=== PATIENT | male | born 1970 | race Caucasian/White ===

== ENCOUNTER → 2022-09-29 15:16 | Outpatient (BNVA) | payer SELFPAY | PROVIDERS: PCP Nurse Practitioner Family; Visit Provider Nurse Practitioner Family | DX: I10 Essential (primary) hypertension (principal); R79.89 Other specified abnormal findings of blood chemistry; Z76.89 Persons encountering health services in other specified circumstances; R03.0 Elevated blood-pressure reading, without diagnosis of hypertension | CPT/HCPCS: 80053; 80061; 82140; 84443; 85025 ==

== ENCOUNTER 2023-09-04 14:17 | Emergency (ER) | payer SELFPAY ==
[2023-09-04 14:23] VITALS: BP 143/81; PULSE 71; RESP 16; TEMP 36.7; O2SAT 100; BMI 22.8
--- NOTE | 2023-09-04 14:35 | XRR_ITS ---
PROCEDURE INFORMATION: Exam: XR Left Hand Exam date and time: 09/04/2023 2:46 PM Age: 52 years old Clinical indication: Injury or trauma; Left; Index finger and middle finger; Patient HX: Laceration to distal lt 1st and 2nd digit; Man vs saw TECHNIQUE: Imaging protocol: Radiologic exam of the left hand. Views: 3 or more views. COMPARISON: No relevant prior studies available. FINDINGS: Bones/joints: No acute fracture. Old callused 5th metacarpal fracture. Soft tissues: No radiopaque foreign body. XR/XR hand LT min 3V* [id number] IMPRESSION: No acute fracture or radiopaque foreign body.
--- NOTE | 2023-09-04 14:35 | ED_ITS ---
HPI - Wound/Laceration General: Chief Complaint: Wound/Laceration Stated Complaint: fingers caught in table saw Time Seen by Provider: 09/04/23 14:31 Source: patient Mode of arrival: ambulatory Limitations: no limitations History of Present Illness: 52-year-old male who lacerated his finge rs on a table saw. He has lacerations to the distal tips of his left pointer and middle finger on the dorsum aspect. He states he is up-to-date on his tetanus he rates his pain a 4 out of 10 he has no bleeding at this time. No amputation. Associated symptoms: Denies chills, fever(s), nausea or vomiting Review of Systems Const: Denies: fever(s), chills, body aches or change in appetite ENMT: Denies: throat pain or dental pain Card: Denies: chest pain Resp: Denies: dyspnea GI: Denies: abdominal pain, nausea, vomiting or diarrhea Musc: Denies: neck pain or back pain Skin/Breast: Denies: rash Neuro: Denies: headache(s) PFSH ED PFSH: Medical History Hypertension Social History Smoking and tobacco/nicotine status: current every day tobacco/nicotine user Alcohol intake: never Physical Exam Const: COMMON NORMALS: no acute distress, patient oriented x3 and healthy appearing HENMT: COMMON NORMALS: normocephalic and atraumatic HEAD & SCALP: normocephalic and atraumatic Neck/C-Spine: COMMON NORMALS: full ROM and supple Chest: COMMONS NORMALS: normal inspection of the chest and normal palpation of entire chest wall Resp: COMMON NORMALS: normal respiratory effort Cardio: COMMON NORMALS: regular rate RATE: regular rate Extremity: COMMON NORMALS: full ROM NARRATIVE EXTREMITY EXAM: 1 cm laceration to the dorsum distal tip s of the left middle and pointer finger does not involve any tendons he has full range of motion does involve nailbed Neuro: COMMON NORMALS: patient oriented x3, moves all extremities and no focal motor deficits Psych: COMMON NORMALS: mental status grossly normal, Normal thought process present and cooperative THOUGHT PROCESS: Normal thought process present Skin: COMMON NORMALS: no rashes or lesions noted and no wounds GENERAL SKIN EXAM: no rashes or lesions noted Procedures Laceration Laceration 1: Site: hand Side (If applicable): left (index finger) Size (cm): 1 Description: linear Depth: simple, single layer and involves tendon Pre-repair: wound explored, irrigated extensively and deep structures intact Skin layer closed with: other (dermabond) Laceration 2: Site: hand Side (If applicable): left (middle finger) Size (cm): 1 Description: linear Depth: simple, single layer and involves tendon Pre-repair: wound explored, irrigated extensively and deep structures intact Skin layer closed with: other (dermabond) Course Vital Signs: Vital signs: Vital Signs Temperature 98.1 F 09/04/23 14:23 Pulse Rate 71 09/04/23 14:23 Respiratory Rate 16 09/04/23 14:23 Blood Pressure 143/81 09/04/23 14:23 Pulse Oximetry 100 09/04/23 14:23 Oxygen Delivery Me thod Room Air 09/04/23 14:23 MDM - Wound/Laceration Medical Decision Making Patient presents here with superficial lacerations to the distal fingertips of the index and middle finger of the left hand no fractures noted repaired the lacerations with Dermabond he stable for discharge Medical Records I reviewed the patient's medical records. XR interpretation done by ED provider, pending radiology final review ED provider radiology interpretation(s): X-ray hand no fracture noted Discharge Plan Discharge Patient Disposition: Home Clinical Impression: Finger laceration Condition: Stable Prescriptions: No Action No Known Home Medications Discharge Orders: Discharge ED (Routine); Ordered 09/04/23 Ordered By: Mandeep York Discharge Diet: Advance as tolerated Discharge Activity: Resume usual activity Patient Instructions: Laceration (ED), Skin Adhesive Care (ED) Coding Level of Care Code ED Street Sweeper Operator for Michelle Blake
== END 2023-09-04 16:00 | disposition home or self-care (01) ==
PROVIDERS: Emergency Provider Emergency Medicine
DX: S61.211A Laceration without foreign body of left index finger without damage to nail, initial encounter (principal); S61.213A Laceration without foreign body of left middle finger without damage to nail, initial encounter; I10 Essential (primary) hypertension; Z72.0 Tobacco use; W27.0XXA Contact with workbench tool, initial encounter
CPT/HCPCS: 12001; 73130; 99283